=== PATIENT | male | born 1960 | race Caucasian/White ===

== ENCOUNTER 2023-01-19 21:37 | Emergency (ER) | payer MEDICARE, SELFPAY ==
[2023-01-19 21:38] VITALS: BP 148/80; PULSE 110; RESP 16; TEMP 36.7; O2SAT 100; BMI 23.3
--- NOTE | 2023-01-19 21:45 | ECG_ITS ---
[facility] Test Date: 2023-01-19 Pat Name: Geovanni Zimmerman Department: Room: Gender: Male [employer] Sergeant: : 1960 Requested By: Kwame Hutchins Order Number: [id number] Crys MD: Katina Cook M.D. Measurements Intervals [place] Rate: 99 P: 59 SD: 137 QRS: 41 QRSD: 77 T: 59 QT: 353 QTc: 454 Interpretive Statements SINUS RHYTHM POSSIBLE LEFT ATRIAL ENLARGEMENT [-0.1mV P-WAVE IN V1/V2] No previous ECG available for comparison Electronically Signed On 01-20-2023 4:00:49 CDT by Katina Cook M.D. [email or web address] Therapeuticsun[facility] centerU-NOTE/store/NU/[id number] f
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
[2023-01-19 22:30] VITALS: BP 100/69; PULSE 101; RESP 16; O2SAT 98
[2023-01-19 23:07] LABS: Basophils % 0.4 %; Hematocrit 28.4 % (37-53); Lymphocytes # 0.4 10^3/uL (0.8-4.8); Lymphocytes % 5.4 %; Mean Corpuscular HGB Conc 31.7 g/dL (30-55); Mean Corpuscular Hemoglobin 33.7 pg (27-33); Mean Corpuscular Volume 106.4 fl (82-101); Monocytes # 0.5 10^3/uL (0.2-0.9); Monocytes % 6.9 %; Neutrophils # 6.62 10^3/uL (1.8-7.7); Neutrophils % 86.8 %; Nucleated Red Blood Cells % 0 %; Platelet Count 120 10^3/cmm (157-399); Red Blood Count 2.67 10^6/uL (3.85-5.65); Red Cell Distribution Width 14.3 % (12.1-15.1); White Blood Count 7.63 10^3/uL (3.29-11.43)
[2023-01-19 23:16] LABS: INR 1.06 (0.8-1.2)
[2023-01-19 23:22] LABS: Troponin(5th) Baseline 19 ng/L (0-15)
[2023-01-19 23:24] LABS: Alanine Aminotransferase 78 U/L (0-41); Albumin Level 2.8 g/dL (3.5-5.2); Alcohol Level 56 mg/dL (0-10); Alkaline Phosphatase 333 U/L (40-130); Aspartate Amino Transferase 197 U/L (0-40); Blood Urea Nitrogen 7 mg/dL (8-23); Calcium 7.6 mg/dL (8.5-10.5); Carbon Dioxide 19 mmol/L (22-29); Chloride 98 mmol/L (98-107); Globulin 2.8 g/dL (1.3-4.6); Glomerular Filtration Rate 55.9 mL/min (90-130); Glucose 164 mg/dL (65-115); Osmolality Calculated 284 mOsm/kg (285-295); Sodium 136 mmol/L (136-145); Total Bilirubin 1.1 mg/dL (0.15-1.2); Total Protein 5.6 g/dL (6.6-8.7)
[2023-01-19 23:24] LABS: Add Urine Microscopic? YES; Bilirubin Urine 2+ (Negative); Blood Urine Neg (Negative); Glucose Urine UA Norm (Normal); Ketones Urine 1+ (Negative); Leukocyte Esterase Urine Negative (Negative); Nitrate Urine Negative (Negative); Protein Urine 1+ (Negative); Urine Appearance Clear (CLEAR); Urine Color Dark Yellow (Yellow); Urobilinogen Urine 4+ mg/dL (Negative); pH Urine 6 (5-7)
[2023-01-19 23:25] LABS: Creatinine Clr Calc Pharmacy 53.8237
[2023-01-19 23:25] LABS: Add Urine Culture? No; Bacteria Urine TRACE /hpf; Hyaline Casts Urine 0-4 /lpf; Mucus Urine 3+ /hpf; Transitional Epi Cells Urine 0-4 /hpf
[2023-01-19 23:33] LABS: Amphetamines Screen Urine Negative (Negative); Barbiturates Screen Urine Negative (Negative); Benzodiazepines Screen Urine Positive (Negative); Cocaine Screen Urine Negative (Negative); Opiate Screen Urine Negative (Negative); PCP Screen Urine Negative (Negative); THC Screen Urine Positive (Negative)
[2023-01-19 23:37] VITALS: BP 105/59; PULSE 100; O2SAT 98
[2023-01-19 23:38] VITALS: BP 105/59; PULSE 101; O2SAT 98
== END 2023-01-19 23:40 | disposition short-term general hospital (02) ==
PROVIDERS: Emergency Provider Emergency Medicine
DX: S06.6XAA Traumatic subarachnoid hemorrhage with loss of consciousness status unknown, initial encounter (principal); F10.929 Alcohol use, unspecified with intoxication, unspecified; S00.03XA Contusion of scalp, initial encounter; Z79.01 Long term (current) use of anticoagulants; W18.30XA Fall on same level, unspecified, initial encounter; Y92.59 Other trade areas as the place of occurrence of the external cause
CPT/HCPCS: 12001; 36415; 70450; 80053; 80306; 80307; 81001; 84484; 85025; 85610; 93005; 99285